=== PATIENT | female | born 1990 | race Caucasian/White ===

== ENCOUNTER 2018-05-21 14:39 | Emergency (ER) | payer OTHER ==
[~2018-05-21] VITALS: Ht 160 cm; Wt 111.1 kg
[2018-05-21 16:04] LABS: BASOPHIL % 0.4 % (0-2); PLATELET COUNT 194 x10^3mcL (130-400); RED CELL DISTRIBUTION WIDTH 13.2 % (11.5-14.5)
[2018-05-21 16:11] LABS: CALCIUM 8.9 mg/dL (8.5-10.1); CARBON DIOXIDE 27.2 mmol/L (21-32); CHLORIDE SERUM 101 mmol/L (98-107); CREATININE SERUM 0.7 mg/dL (0.6-1.0); GFR1 > 60 mL/min; GLUCOSE SERUM 191 mg/dL (74-106); POTASSIUM SERUM 3.8 mmol/L (3.5-5.1); SODIUM SERUM 138 mmol/L (136-145)
[2018-05-21 16:16] LABS: ALKALINE PHOSPHATASE 53 U/L (46-116); ALT/SGPT 39 U/L (14-59); AST/SGOT 25 U/L (15-37); BILIRUBIN TOTAL 0.44 mg/dL (0.20-1.00); TOTAL PROTEIN, SERUM 6.9 g/dL (6.4-8.2)
[2018-05-21 16:18] LABS: ALBUMIN 3.2 g/dL (3.4-5.0)
[2018-05-21 16:48] VITALS: BP 120/84
== END 2018-05-21 17:04 | disposition home or self-care (01) ==
LOC: ED 14:39
PROVIDERS: Emergency Medicine
DX: O26.891 Other specified pregnancy related conditions, first trimester (principal); M54.31 Sciatica, right side; E11.9 Type 2 diabetes mellitus without complications; Z3A.08 8 weeks gestation of pregnancy
CPT/HCPCS: J1885; J2270; J2405; J7030